=== PATIENT | female | born 1935 | race African-American/Black ===

== ENCOUNTER 2017-11-01 16:27 | Emergency (ER) | payer SELFPAY ==
[2017-11-01 16:52] VITALS: BP 204/69
== END 2017-11-01 19:21 | disposition left against medical advice (07) ==
LOC: ER 16:27
DX: Z53.21 Procedure and treatment not carried out due to patient leaving prior to being seen by health care provider (principal)

== ENCOUNTER 2018-08-23 19:53 | Emergency (ER) | payer MEDICARE, OTHER ==
[2018-08-23] MEDS ORDERED: ONDANSETRON HCL INJ/PF 4 MG/2 ML SDV IV ONE (20:35)
[2018-08-23] MEDS ORDERED: NORMAL SALINE 500 ML IV ONE (20:35)
--- NOTE | 2018-08-23 21:16 | RADIOLOGY REPORT (SQ) ---
EXAM DESCRIPTION: XR CHEST 2 VIEWS COMPLETED DATE/TME: 08/23/2018 20:34 CLINICAL HISTORY: 83 years Female Dizziness elevated blood pressure COMPARISON: 01/30/2015. FINDINGS: Heart size and mediastinal contour within normal limits. Moderate to severe degenerative change in the thoracic spine. No acute infiltrate or evidence of edema. Blunting of the costophrenic angles which is nonspecific and may reflect small amount of fluid versus scarring. IMPRESSION: Question small pleural effusions versus scarring
[2018-08-23 22:22] LABS: ABSOLUTE LYMPHOCYTES (AUTO) 0.9 10^3/uL (0.5-4.7); ABSOLUTE MONOCYTES (AUTO) 0.4 10^3/uL (0.1-1.4); ABSOLUTE NEUT (AUTO) 8.8 10^3/uL (1.7-8.2); BASOPHILS % (AUTO) 0.3 % (0-2); EOSINOPHILS % (AUTO) 0.2 % (0-6); HEMATOCRIT 41.2 % (36.0-47.0); HEMOGLOBIN 14.2 g/dL (12.0-15.5); LYMPHOCYTES % (AUTO) 8.9 % (13-45); MEAN CORPUSCULAR HGB CONC 34.5 g/dL (32.0-36.0); MEAN CORPUSCULAR VOLUME 93 fl (80-97); MONOCYTES % (AUTO) 3.8 % (3-13); PLATELET COUNT 364 10^3/uL (150-450); RED BLOOD COUNT 4.45 10^6/uL (3.72-5.28); RED CELL DISTRIBUTION WIDTH 14.3 % (11.5-14.0); SEGMENTED NEUTROPHILS % (AUTO) 86.8 % (42-78); TOTAL CELLS COUNTED % (AUTO) 100 %; WHITE BLOOD COUNT 10.1 10^3/uL (4.0-10.5)
[2018-08-23 22:29] LABS: APPEARANCE,URINE SLIGHTLY-CLOUDY; BILIRUBIN,URINE NEGATIVE (NEGATIVE); COLOR,URINE YELLOW; GLUCOSE, URINE NEGATIVE (NEGATIVE); KETONES,URINE TRACE mg/dL (NEGATIVE); LEUKOCYTE ESTERASE,URINE SMALL (NEGATIVE); NITRITE,URINE NEGATIVE (NEGATIVE); PROTEIN,URINE 30 mg/dL (NEGATIVE); URINE SPECIFIC GRAVITY 1.021; UROBILINOGEN,URINE NEGATIVE mg/dL (<2.0)
[2018-08-23 22:40] LABS: ALANINE AMINOTRANSFERASE 25 U/L (9-52); ALBUMIN 4.3 g/dL (3.5-5.0); ALKALINE PHOSPHATASE 82 U/L (38-126); ANION GAP 12 (5-19); ASPARTATE AMINO TRANSFERASE 31 U/L (14-36); BILIRUBIN,DIRECT 0.2 mg/dL (0.0-0.4); BILIRUBIN,TOTAL 0.5 mg/dL (0.2-1.3); BLOOD UREA NITROGEN 14 mg/dL (7-20); CALCIUM 9.8 mg/dL (8.4-10.2); CARBON DIOXIDE 29 mmol/L (22-30); CHLORIDE 103 mmol/L (98-107); GLUCOSE 134 mg/dL (75-110); LIPASE 27.9 U/L (23-300); POTASSIUM 3.6 mmol/L (3.6-5.0); SODIUM 143.5 mmol/L (137-145); TOTAL PROTEIN 7.9 g/dL (6.3-8.2)
[2018-08-23 22:52] LABS: CREATINE KINASE MB 0.44 ng/mL (<4.55); TROPONIN I < 0.012 ng/mL
--- NOTE | 2018-08-24 01:22 | ER Document Report ---
ED General - General Chief Complaint: Dizziness Stated Complaint: VOMITING,WEAKNESS Time Seen by Provider: 08/23/18 20:34 Primary Care Provider: FRANCHESCA VIVAR MD [Primary Care Provider] - Follow up as needed Notes: Patient is an 83-year-old female that comes emergency department for chief complaint of feelings of dizziness, lightheadedness, weakness, and she vomited earlier. She denies fever/chills, she states her abdomen was hurting slightly earlier but not now, she denies difficulty breathing, palpitations. She states that when she stands up she gets lightheaded and she felt unsteady. She denies focal numbness or weakness. She lives at home with her family. Family states she is not drinking much fluids but she still has been eating some. Past medical history of hypertension with multiple medications, she also had a DVT and was on Xarelto at one point but has been off for years. TRAVEL OUTSIDE OF THE [place] IN LAST 30 DAYS: No - Related Data Allergies/Adverse Reactions: No Known Allergies Allergy (Verified 11/01/17 16:28) Past Medical History - General Information source: Patient, Relative - Social History Smoking Status: Never Smoker Frequency of alcohol use: None Drug Abuse: None Lives with: Family Family History: Arthritis, Hypertension Patient has suicidal ideation: No Patient has homicidal ideation: No - Past Medical History Cardiac Medical History: Reports: Hx Hypertension Renal/ Medical History: Denies: Hx Peritoneal Dialysis GI Medical History: Reports: Hx Diverticulitis, Hx Gastroesophageal Reflux Disease Musculoskeletal Medical History: Reports Hx Arthritis Traumatic Medical History: Reports: Hx Pneumothorax Past Surgical History: Reports: Hx Hysterectomy, Hx Orthopedic Surgery - back - Immunizations Hx Diphtheria, Pertussis, Tetanus Vaccination: Yes Review of Systems - Review of Systems Constitutional: See HPI EENT: No symptoms reported Cardiovascular: See HPI Respiratory: No symptoms reported Gastrointestinal: No symptoms reported Genitourinary: No symptoms reported Female Genitourinary: No symptoms reported Male Genitourinary: No symptoms reported Musculoskeletal: No symptoms reported Skin: No symptoms reported Hematologic/Lymphatic: No symptoms reported Neurological/Psychological: See HPI Physical Exam - Vital signs Vitals: Temp Pulse Resp BP Pulse Ox 97.8 F 91 16 182/87 H 95 08/23/18 20:10 08/23/18 20:10 08/23/18 20:10 08/23/18 20:10 08/23/18 20:10 - Notes Notes: GENERAL: Alert, interacts well. No acute distress. HEAD: Normocephalic, atraumatic. EYES: Pupils equal, round, and reactive to light. Extraocular movements intact. ENT: Oral mucosa dry, tongue midline. Oropharynx unremarkable. Airway patent. Nares patent, no nasal septal hematoma, TM's intact. NECK: Full range of motion. Supple. Trachea midline. LUNGS: Clear to auscultation bilaterally, no wheezes, rales, or rhonchi. No respiratory distress. HEART: Regular rate and rhythm. No murmur ABDOMEN: Soft, non-tender. Non-distended. Bowel sounds present in all 4 quadrants. GENITOURINARY: Deferred EXTREMITIES: Moves all 4 extremities spontaneously. No edema, normal radial and dorsalis pedis pulses bilaterally. No cyanosis. BACK: no cervical, thoracic, lumbar midline tenderness. No saddle anesthesia, normal distal neurovascular exam. Moves all extremities in full range of motion. NEUROLOGICAL: Alert and oriented x3. Normal speech. Cranial nerves II through XII grossly intact. PSYCH: Normal affect, normal mood. SKIN: Warm, dry, normal turgor. No rashes or lesions noted. Course - Re-evaluation Re-evalutation: Patient is smiling, interactive, well-appearing. She is oriented, has no neurological deficits, she does have dry mucous membranes but otherwise her physical exam is very unremarkable. CBC, chemistry, urinalysis suggesting some dehydration, mildly questionable urine, culture was placed. Troponin is negative. CAT scan of the head with no acute findings. I did discuss the chronic changes with family and patient. Patient was given IV fluids. On reevaluation after IV fluids she is asymptomatic. She is able to stand without feeling lightheaded, she denies any current complaints. She does not have a headache or chest pain. Her blood pressure is elevated, however she states she is due for her blood pressure medications, she is on multiple medications. Patient is requesting discharge. She will be discharged, take her home medications, follow-up with her primary care, and return if she worsens. Family and patient state satisfaction and agreement with plan. - Vital Signs Vital signs: Temp Pulse Resp BP Pulse Ox 97.8 F 100 20 195/93 H 100 08/23/18 20:10 08/23/18 20:31 08/24/18 03:48 08/24/18 03:48 08/24/18 03:48 - Laboratory Result Diagrams: 08/23/18 21:56 08/23/18 21:56 Laboratory results interpreted by me: 08/23/18 08/23/18 08/23/18 21:56 21:56 21:56 RDW 14.3 H Seg Neutrophils % 86.8 H Lymphocytes % 8.9 L Absolute Neutrophils 8.8 H Est GFR (Non-Af Amer) 58 L Glucose 134 H Urine Protein 30 H Urine Ketones TRACE H Ur Leukocyte Esterase SMALL H - EKG Interpretation by Me Additional EKG results interpreted by me: EKG sinus rhythm at a rate of 73, with no T wave inversions or ST segment changes in consecutive leads. Normal axis. QTC of 419. Discharge - Discharge Clinical Impression: Lightheadedness, Dehydration Vomiting Qualifiers: Vomiting type: unspecified Vomiting Intractability: non-intractable Nausea presence: unspecified Qualified Code(s): R11.10 - Vomiting, unspecified Condition: Stable Disposition: HOME, SELF-CARE Additional Instructions: Her evaluation shows some dehydration but no other concerning findings. She has been rehydrated here tonight. Follow-up with primary care for additional evaluation and management. Try to increase fluids at home. Give the nausea medication if needed. Return for any worsening symptoms including abdominal pain, returned vomiting, headache, passing out, chest pain, fever, or any other concerning symptoms. Prescriptions: Ondansetron [Zofran Odt 4 mg Tablet] 1 tab PO Q4H PRN #12 tab.rapdis PRN Reason: For Nausea/Vomiting Referrals: FRANCHESCA VIVAR MD [Primary Care Provider] - Follow up as needed
[2018-08-24] MEDS ORDERED: NORMAL SALINE 1000 ML 1,000 ML IV ONE (01:24)
--- NOTE | 2018-08-24 02:16 | RADIOLOGY REPORT (SQ) ---
EXAM: CT head without IV contrast CLINICAL DATA: hypertension, vomiting, dizzy, unsteady TECHNICAL DATA: Multiple axial CT images of the brain were performed followed by sagittal and coronal reconstructed images. The CT study is performed according to ALARA (as low as reasonably achievable) or ALARA/IMAGE GENTLY, with automatic adjustment of mA and/or kV according to patient size. Performed on: 08/24/2018 at 1:42 AM Comparisons: CT head performed on 01/30/2015. FINDINGS: There is no evidence of mass, acute mass effect or midline shift. There are no acute extra-axial fluid collections. There is no evidence of acute intracranial hemorrhage. The cerebral sulci and ventricles are prominent consistent with mild cerebral volume loss. There are scattered areas of decreased attenuation within the subcortical and periventricular white matter most likely due to mild chronic microangiopathy. There is no significant mucosal thickening of the paranasal sinuses. The mastoid air cells are clear. The orbital contents are grossly unremarkable. No acute osseous abnormalities are identified. No focal soft tissue abnormalities are identified. There are calcifications along the cavernous carotid arteries. IMPRESSION: 1. There is no evidence of acute intracranial pathology. No significant change since the prior study. 2. 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
[2018-08-24 03:49] VITALS: BP 195/93
--- NOTE | 2018-08-24 22:34 | EKG REPORT ---
SEVERITY:- ABNORMAL ECG - SINUS ARRHYTHMIA, RATE 57-83 LEFT VENTRICULAR HYPERTROPHY : Confirmed by: Mirtha Washington MD 24-Aug-2018 22:34:18
== END 2018-08-24 05:00 | disposition home or self-care (01) ==
LOC: EDSEX 19:53 → ER 19:53
DX: E86.0 Dehydration (principal); R42 Dizziness and giddiness; R53.1 Weakness; R11.10 Vomiting, unspecified; I10 Essential (primary) hypertension; Z79.899 Other long term (current) drug therapy; Z86.718 Personal history of other venous thrombosis and embolism
CPT/HCPCS: 93005; 99283; 36415; 87086; 82553; 83690; 85025; 80053; 81001; 84484; 71046; 70450; 93010; J7030

== ENCOUNTER 2019-02-22 17:23 | Emergency (ER) | payer MEDICARE ==
[2019-02-22] MEDS ORDERED: ACETAMINOPHEN 325 MG TABLET PO ONE (17:52)
--- NOTE | 2019-02-22 17:53 | ER Document Report ---
ED Medical Screen (RME) - General Chief Complaint: Back Pain Stated Complaint: BACK PAIN Time Seen by Provider: 02/22/19 17:50 Primary Care Provider: FRANCHESCA VIVAR MD [Primary Care Provider] - Follow up as needed TRAVEL OUTSIDE OF THE [place] IN LAST 30 DAYS: No - HPI Notes: 02/22/19 17:53 Patient is an 83-year-old female with history of hypertension who presents complaining of low back pain over the past 2 days without precipitating event or injury. She is accompanied by family member. She is able to eat and drink without difficulty. She is urinating normally and having normal bowel movements. Movement makes her pain worse. No fever. No report of fall. Denies drug allergies. I have treated and performed a rapid initial assessment of this patient. A comprehensive ED assessment and evaluation of the patient, analysis of test results and completion of medical decision making process will be conducted by additional ED providers. PHYSICAL EXAMINATION: GENERAL: Well-appearing, well-nourished and in no acute distress. A&Ox4. Answers questions appropriately. - Related Data Allergies/Adverse Reactions: No Known Allergies Allergy (Verified 11/01/17 16:28) Past Medical History - Social History Frequency of alcohol use: None Drug Abuse: None - Past Medical History Cardiac Medical History: Reports: Hx Hypertension Renal/ Medical History: Denies: Hx Peritoneal Dialysis GI Medical History: Reports: Hx Diverticulitis, Hx Gastroesophageal Reflux Disease Musculoskeltal Medical History: Reports Hx Arthritis Traumatic Medical History: Reports: Hx Pneumothorax Past Surgical History: Reports: Hx Hysterectomy, Hx Orthopedic Surgery - back - Immunizations Hx Diphtheria, Pertussis, Tetanus Vaccination: Yes Physical Exam - Vital signs Vitals: Temp Pulse Resp BP Pulse Ox 98.9 F 92 14 175/70 H 99 02/22/19 17:46 02/22/19 17:46 02/22/19 17:46 02/22/19 17:46 02/22/19 17:46 Course - Vital Signs Vital signs: Temp Pulse Resp BP Pulse Ox 98.9 F 92 14 175/70 H 99 02/22/19 17:46 02/22/19 17:46 02/22/19 17:46 02/22/19 17:46 02/22/19 17:46 Doctor's Discharge - Discharge Referrals: FRANCHESCA VIVAR MD [Primary Care Provider] - Follow up as needed
[2019-02-22 18:22] LABS: APPEARANCE,URINE SLIGHTLY-CLOUDY; BILIRUBIN,URINE NEGATIVE (NEGATIVE); COLOR,URINE YELLOW; GLUCOSE, URINE NEGATIVE (NEGATIVE); KETONES,URINE NEGATIVE (NEGATIVE); PROTEIN,URINE NEGATIVE (NEGATIVE); URINE SPECIFIC GRAVITY 1.021
--- NOTE | 2019-02-22 18:42 | RADIOLOGY REPORT (SQ) ---
EXAM DESCRIPTION: L SPINE WHOLE COMPLETED DATE/TIME: 02/22/2019 6:28 pm REASON FOR STUDY: LBP COMPARISON: None. NUMBER OF VIEWS: Five views including obliques. TECHNIQUE: AP, lateral, oblique, and sacral radiographic images acquired of the lumbar spine. LIMITATIONS: None. FINDINGS: MINERALIZATION: Normal. SEGMENTATION: Normal. No transitional anatomy. ALIGNMENT: Mild dextroscoliosis. Grade 2 anterolisthesis of L4 on L5. VERTEBRAE: Maintained height. No fracture or worrisome bone lesion. DISCS: All the lumbar disc spaces are narrowed to some degree. Marginal osteophytes are present. POSTERIOR ELEMENTS: Hypertrophic facet changes. Likely pars defects at L5. HARDWARE: Hardware in the left side of the spine posteriorly at L4 and L5. PARASPINAL SOFT TISSUES: Normal. PELVIS: Intact as visualized. No fractures or worrisome bone lesions. SI joints intact. OTHER: No other significant finding. IMPRESSION: Mild scoliosis. Grade 2 anterolisthesis of L4 on L5. Degenerative disc disease, spondy losis, and facet arthropathy. TECHNICAL DOCUMENTATION: JOB ID: [id number]- All Rights Reserved Reading location - IP/workstation name: [email or web address]
[2019-02-22] MEDS ORDERED: CYCLOBENZAPRINE HCL 10 MG TABLET PO ONE (20:43)
--- NOTE | 2019-02-22 20:49 | ER Document Report ---
ED General - General Chief Complaint: Back Pain Stated Complaint: BACK PAIN Time Seen by Provider: 02/22/19 17:50 Primary Care Provider: FRANCHESCA VIVAR MD [Primary Care Provider] - Follow up as needed Notes: 83-year-old female presents the emergency department with her daughter complaining of left-sided low back pain that is been going on since just before Wenceslao but has been steadily worsening for the past 1 to 2 weeks and became its worst today. States that it worsens with movements and trying to sit up. It is relieved with tramadol that she is prescribed for her knee however it immediately comes back when the tramadol wears off. Denies any numbness or tingling, denies any weakness, denies any bowel or bladder dysfunction. Denies any fevers, denies any urinary symptoms, denies any trauma or history of cancer. TRAVEL OUTSIDE OF THE [place] IN LAST 30 DAYS: No - Related Data Allergies/Adverse Reactions: No Known Allergies Allergy (Verified 11/01/17 16:28) Past Medical History - General Information source: Patient, Relative - Social History Smoking Status: Never Smoker Frequency of alcohol use: None Drug Abuse: None Family History: Arthritis, Hypertension Patient has suicidal ideation: No Patient has homicidal ideation: No - Past Medical History Cardiac Medical History: Reports: Hx Hypertension Renal/ Medical History: Denies: Hx Peritoneal Dialysis GI Medical History: Reports: Hx Diverticulitis, Hx Gastroesophageal Reflux Disease Musculoskeletal Medical History: Reports Hx Arthritis Traumatic Medical History: Reports: Hx Pneumothorax Past Surgical History: Reports: Hx Hysterectomy, Hx Orthopedic Surgery - back - Immunizations Hx Diphtheria, Pertussis, Tetanus Vaccination: Yes Review of Systems - Review of Systems Constitutional: No symptoms reported Gastrointestinal: No symptoms reported Genitourinary: No symptoms reported. denies: Dysuria, Discharge, Incontinence Musculoskeletal: See HPI Neurological/Psychological: No symptoms reported -: Yes All other systems reviewed and negative Physical Exam - Vital signs Vitals: Temp Pulse Resp BP Pulse Ox 98.9 F 92 14 175/70 H 99 02/22/19 17:46 02/22/19 17:46 02/22/19 17:46 02/22/19 17:46 02/22/19 17:46 Interpretation: Hypertensive - Notes Notes: GENERAL: Alert, interacts well. No acute distress. HEAD: Normocephalic, atraumatic EYES: Pupils equal, round and reactive to light, extraocular movements intact. ENT: Oral mucosa moist, tongue midline. NECK: Full range of motion, supple, trachea midline. LUNGS: Clear to auscultation bilaterally, no wheezes, rales or rhonchi, no respiratory distress. HEART: Regular rate and rhythm, no murmurs, gallops, rubs. BACK: No midline bony tenderness palpation, no step-offs or deformities, no tenderness to palpation in the muscle or soft tissue in the paraspinal lumbar region. EXTREMITIES: Moves all 4 extremities spontaneously, no edema, radial and dorsalis pedis pulses 2/4 bilaterally. No cyanosis. 5 out of 5 great toe krishnamurthy sing strength bilaterally. Sensation intact across the feet, legs and inner thighs. NEUROLOGICAL: Alert, normal speech, patellar DTRs 2+ bilaterally. PSYCH: Normal mood, normal affect. SKIN: Warm, Dry, normal turgor. Course - Re-evaluation Re-evalutation: 02/22/19 20:46 Lumbar Spine X-Ray 02/22/19 17:52 IMPRESSION: Mild scoliosis. Grade 2 anterolisthesis of L4 on L5. Degenerative disc disease, spondylosis, and facet arthropathy. Urinalysis shows moderate leukocyte esterase but I suspect that this is asymptomatic bacteriuria rather than true infection given the fact that she has absolutely no symptoms of a urinary tract infection aside from back pain and her back pain is not flank pain it is low back pain that is worsened with movement. Discussed with family trialing muscle relaxer first and then if her pain is not at all improved with the muscle relaxer taking Keflex for UTI instead. Family is agreeable to this plan. She will be prescribed Flexeril 5 mg 3 times daily as needed. - Vital Signs Vital signs: Temp Pulse Resp BP Pulse Ox 98.9 F 92 14 175/70 H 99 02/22/19 17:46 02/22/19 17:46 02/22/19 17:46 02/22/19 17:46 02/22/19 17:46 - Laboratory Laboratory results interpreted by me: 02/22/19 18:05 Urine Blood SMALL H Urine Urobilinogen 2.0 H Leukocyte Esterase Rfl MODERATE H Discharge - Discharge Clinical Impression: Left low back pain Qualifiers: Chronicity: chronic Sciatica presence: without sciatica Qualified Code(s): M54.5 - Low back pain; G89.29 - Other chronic pain Condition: Stable Disposition: HOME, SELF-CARE Additional Instructions: Low Back Pain Three out of every four people will have an episode of disabling back pain during their lifetime. Most commonly the pain is due to straining of the muscl es and ligaments in the low back. Usual treatment includes: (1) Rest on a firm surface. Avoid lying on your stomach. (2) Ice pack the painful area. After a few days, gentle heat may be used intermittently to relax the area, or ice packs can be continued. (3) Medication may be needed -- muscle relaxers and antiinflammatory medicines are commonly used. (4) As the back improves, exercises are prescribed to strengthen the back and abdominal muscles. Your doctor will advise you on the proper care for your back at each stage in your recovery. You may be better in a few days -- or healing may take several weeks. If new symptoms of a "herniated disc" (radiation of pain, numbness, or tingling down the back of the leg or weakness in the leg) occur, you should be re-examined. Further testing may be necessary. Take the Flexeril 5 to 10 mg every 8 hours as needed for back pain. If this does not even temporarily improve your pain after 2 days you may start taking the Keflex 500 mg twice a day for 5 days. Your x-ray showed arthritis in your back and degenerative disc disease. Your urinalysis showed some bacteria in your urine but I think this is more likely colonization with bacteria that are not causing a problem rather than a true urinary tract infection. This is why we are treating your back pain with muscle relaxers first. If you develop burning with urination or frequency please start taking the Keflex. Prescriptions: Cyclobenzaprine HCl [Flexeril 5 mg Tablet] 5 mg PO TID #15 tablet Cephalexin Monohydrate [Keflex 500 mg Capsule] 500 mg PO BID 5 Days capsule Referrals: FRANCHESCA VIVAR MD [Primary Care Provider] - Follow up as needed
[2019-02-22 21:22] VITALS: BP 130/77
== END 2019-02-22 21:10 | disposition home or self-care (01) ==
LOC: ER 17:23
DX: M51.36 Other intervertebral disc degeneration, lumbar region (principal); M47.9 Spondylosis, unspecified; M41.9 Scoliosis, unspecified; M54.5 Low back pain; G89.29 Other chronic pain; I10 Essential (primary) hypertension; Z79.899 Other long term (current) drug therapy
CPT/HCPCS: 99283; 87086; 81001; 72110; A9270 ×2

== ENCOUNTER 2019-02-24 15:50 | Emergency (ER) | payer MEDICARE ==
[2019-02-24] MEDS ORDERED: ACETAMINOPHEN 325 MG TABLET PO ONE (16:27)
--- NOTE | 2019-02-24 16:29 | ER Document Report ---
ED Medical Screen (RME) - General Chief Complaint: Neck Pain >24hrs old Stated Complaint: HEAD/NECK PAIN/FEVER Time Seen by Provider: 02/24/19 16:16 Primary Care Provider: FRANCHESCA VIVAR MD [Primary Care Provider] - Follow up as needed Notes: Patient is a 83-year-old female who presents to the ED with a chief complaint of a headache and neck pain. She was recently just treated for back pain and a possible UTI. Family has not started the antibiotic, but was told to started if she continues to have back pain. Family member states that the patient is not acting herself and can barely hold her head up. Exam: Tenderness noted to neck. I have greeted and performed a rapid initial assessment of this patient. A comprehensive ED assessment and evaluation of the patient, analysis of test results and completion of medical decision making process will be conducted by an additional ED providers. TRAVEL OUTSIDE OF THE [place] IN LAST 30 DAYS: No - Related Data Allergies/Adverse Reactions: No Known Allergies Allergy (Verified 11/01/17 16:28) Past Medical History - Past Medical History Cardiac Medical History: Reports: Hx Hypertension Renal/ Medical History: Denies: Hx Peritoneal Dialysis GI Medical History: Reports: Hx Diverticulitis, Hx Gastroesophageal Reflux Disease Musculoskeltal Medical History: Reports Hx Arthritis Traumatic Medical History: Reports: Hx Pneumothorax Past Surgical History: Reports: Hx Hysterectomy, Hx Orthopedic Surgery - back - Immunizations Hx Diphtheria, Pertussis, Tetanus Vaccination: Yes Physical Exam - Vital signs Vitals: Temp Pulse Resp BP Pulse Ox 98.5 F 102 H 17 187/67 H 97 02/24/19 16:13 02/24/19 16:13 02/24/19 16:13 02/24/19 16:13 02/24/19 16:13 Course - Vital Signs Vital signs: Temp Pulse Resp BP Pulse Ox 98.5 F 102 H 17 187/67 H 97 02/24/19 16:13 02/24/19 16:13 02/24/19 16:13 02/24/19 16:13 02/24/19 16:13 Doctor's Discharge - Discharge Referrals: FRANCHESCA VIVAR MD [Primary Care Provider] - Follow up as needed
--- NOTE | 2019-02-24 17:05 | RADIOLOGY REPORT (SQ) ---
EXAM DESCRIPTION: CT HEAD WITHOUT COMPLETED DATE/TIME: 02/24/2019 4:53 pm REASON FOR STUDY: AMS; [facility] COMPARISON: 08/24/2018 TECHNIQUE: Axial images acquired through the brain without intravenous contrast. Images reviewed wit h bone, brain and subdural windows. Images stored on PACS. All CT scanners at this facility use dose modulation, iterative reconstruction, and/or weight based d osing when appropriate to reduce radiation dose to as low as reasonably achievable (ALARA). [facility]: Dose Right [facility]: CareDose [facility]: Dose Right [facility]: Teradose 4D [facility]: Smart [employer] RADIATION DOSE: CT Rad equipment meets quality standard of care and radiation dose reduction techniq ues were employed. CTDIvol: 53.2 mGy. DLP: 831 mGy-cm.. LIMITATIONS: None. FINDINGS: VENTRICLES: Normal size and contour. CEREBRUM: No masses. No hemorrhage. No midline shift. Age appropriate white matter. No evidence for a cute infarction. CEREBELLUM: No masses. No hemorrhage. No alteration of density. No evidence for acute infarction. EXTRA-AXIAL SPACES: No fluid collections. ORBITS AND GLOBE: No intra- or extraconal masses. Normal contour of globe without masses. CALVARIUM: No fracture. PARANASAL SINUSES: No fluid or mucosal thickening. SOFT TISSUES: No mass or hematoma. OTHER: No other significant finding. IMPRESSION: NO ACUTE INTRACRANIAL FINDINGS. EVIDENCE OF ACUTE STROKE: NO. TECHNICAL DOCUMENTATION: JOB ID: [id number] Quality ID # [id number]: Final reports with documentation of one or more dose reduction techniques (e.g., Au tomated exposure control, adjustment of the mA and/or kV according to patient size, use of iterative reconstruction technique) 2010 [employer]- All Rights Reserved Reading location - IP/workstation name: [email or web address]
[2019-02-24 18:15] LABS: APPEARANCE,URINE SLIGHTLY-CLOUDY; BILIRUBIN,URINE NEGATIVE (NEGATIVE); COLOR,URINE AMBER; GLUCOSE, URINE NEGATIVE (NEGATIVE); KETONES,URINE NEGATIVE (NEGATIVE); PROTEIN,URINE 30 mg/dL (NEGATIVE); URINE SPECIFIC GRAVITY 1.025
[2019-02-24 18:48] LABS: ABSOLUTE BASOPHILS # (AUTO) 0.1 10^3/uL (0.0-0.2); ABSOLUTE MONOCYTES (AUTO) 1.4 10^3/uL (0.1-1.4); ABSOLUTE NEUT (AUTO) 8.5 10^3/uL (1.7-8.2); BASOPHILS % (AUTO) 0.7 % (0-2); EOSINOPHILS % (AUTO) 0.1 % (0-6); HEMATOCRIT 33.3 % (36.0-47.0); HEMOGLOBIN 11.4 g/dL (12.0-15.5); LYMPHOCYTES % (AUTO) 9.1 % (13-45); MEAN CORPUSCULAR HEMOGLOBIN 31.3 pg (27.0-33.4); MEAN CORPUSCULAR HGB CONC 34.1 g/dL (32.0-36.0); MEAN CORPUSCULAR VOLUME 92 fl (80-97); PLATELET COUNT 234 10^3/uL (150-450); RED BLOOD COUNT 3.63 10^6/uL (3.72-5.28); RED CELL DISTRIBUTION WIDTH 13.7 % (11.5-14.0); SEGMENTED NEUTROPHILS % (AUTO) 77.1 % (42-78); TOTAL CELLS COUNTED % (AUTO) 100 %; WHITE BLOOD COUNT 11.1 10^3/uL (4.0-10.5)
[2019-02-24 19:07] LABS: ALBUMIN 3.4 g/dL (3.5-5.0); ALKALINE PHOSPHATASE 131 U/L (38-126); ANION GAP 6 (5-19); ASPARTATE AMINO TRANSFERASE 72 U/L (14-36); BILIRUBIN,DIRECT 0.4 mg/dL (0.0-0.4); BILIRUBIN,TOTAL 0.9 mg/dL (0.2-1.3); BLOOD UREA NITROGEN 14 mg/dL (7-20); CALCIUM 9.3 mg/dL (8.4-10.2); CARBON DIOXIDE 27 mmol/L (22-30); CHLORIDE 102 mmol/L (98-107); GLUCOSE 119 mg/dL (75-110); POTASSIUM 3.6 mmol/L (3.6-5.0); TOTAL PROTEIN 6.9 g/dL (6.3-8.2)
[2019-02-24] MEDS ORDERED: CEPHALEXIN 500 MG CAPSULE PO ONE (19:49)
[2019-02-24 20:25] VITALS: BP 150/52
== END 2019-02-24 20:47 | disposition home or self-care (01) ==
LOC: ER 15:50
DX: M54.2 Cervicalgia (principal); R51 Headache; R50.9 Fever, unspecified; I10 Essential (primary) hypertension
CPT/HCPCS: 99284; 36415; 85025; 80053; 81001; 70450; A9270 ×2